=== PATIENT | male | born 1995 | race Caucasian/White ===

== ENCOUNTER 2018-01-21 21:48 | Emergency (ER) | payer SELFPAY, OTHER ==
[2018-01-22] MEDS: IBUPROFEN 600 MG TAB PO (00:51)
[2018-01-22] MEDS: HYDROCODONE/APAP (5/325) TAB PO (03:46)
== END 2018-01-22 04:44 | disposition home or self-care (01) ==
LOC: FTE 21:48
DX: S49.92XA Unspecified injury of left shoulder and upper arm, initial encounter (principal); R51 Headache; V49.40XA Driver injured in collision with unspecified motor vehicles in traffic accident, initial encounter
CPT/HCPCS: 70450; 73030; 99284-25